=== PATIENT | female | born 1975 | race Caucasian/White ===

== ENCOUNTER 2017-01-21 11:36 | Inpatient (IN) | payer OTHER ==
--- NOTE | ~2017-01-21 | PA ---
Unit #: [id number] #: [id number] Patient: NASRA BENEDICT [id number] [facility] [address] [place] [address] [id number] I MR#: [id number] NAME: NASRA BENEDICT. ROOM: P179 Age: 42 Sex: F Admission Date: 01/21/2017 : 1975 Date of Assessment: 01/21/2017 Attending Physician: Madonna Tatum M.D. Admitting Physician: Madonna Tatum M.D. Primary Care Physician: Leticia [facility] PSYCHIATRIC ASSESSMENT DATE OF SERVICE 01/21/2017. IDENTIFYING DATA Ms. Benedict is a 42-year-old single white female, who is a resident of [place], [place], and was self-referred to the hospital on a voluntary basis. CHIEF COMPLAINT "I need help with my drinking and my heroin." HISTORY OF PRESENT ILLNESS Ms. Benedict is a 42-year-old white female, who presented requesting detox of daily opioid abuse and reports that she has been using 40 to 50 dollars worth of heroin on a daily basis for the past 3 weeks and also has been drinking heavily and reports increasing depression and anxiety and significant withdrawal symptoms and consequences because of her addiction and inability to function or perform activities of daily living. She reports poor energy level, psychomotor retardation, and anhedonia, but denies any suicidal ideations, intent, or plan. SUBSTANCE ABUSE HISTORY The patient reports history of alcohol, cannabis, cocaine, opioids, and amphetamine abuse, and currently, it appears that alcohol and opioids has been her drug of choice as she reports that she has been drinking regularly and has been using heroin on a daily basis. PAST PSYCHIATRIC HISTORY The patient has had a history of inpatient chemical dependency treatment at [facility] , and review of the medical records indicate that currently she is not active in any treatment program, is not seeing a psychiatrist, and is not taking any psychotropic medications. PAST MEDICAL HISTORY The patient's medical history is insignificant. ALLERGIES No known medication allergies. PERSONAL AND SOCIAL HISTORY A 42-year-old white female, who reports that she is and lives at home with her and her child and has fairly decent social support system. Unit #: [id number] #: [id number] Patient: NASRA BENEDICT MENTAL STATUS EXAMINATION Middle-aged white female, who was casually dressed with a fair personal hygiene, appears to be in no acute distress or discomfort. She was awake and alert on interaction with intact orientation to time, place, and person. Her mood was anxious and depressed with a congruent affect. Her speech was slow and restricted in content. Her thought processes were disorganized with some looseness of associations. She denies any suicidal or homicidal ideations and also denies any auditory or visual hallucinations. Her insight and judgment remain significantly impaired. DIAGNOSTIC IMPRESSION Psychiatric: Opioid dependence, moderate, in acute withdrawals; alcohol dependence, moderate, in acute withdrawals; and opioid-induced mood disorder. Medical: None. Stressors: Moderate psychosocial stressors. TREATMENT PLAN 1. The patient has presented with a history of mood disorder and has been decompensating and will need inpatient hospitalization for detoxification, safety, and stabilization. We will start her on detox protocol. We will closely monitor for any worsening withdrawal symptoms. 2. Supportive therapy was provided to the patient. 3. Safe, structured, and nourishing environment will be provided. ESTIMATED LENGTH OF STAY 5 to 7 days. ABILITY TO HELP SELF Limited. WILLINGNESS TO HELP SELF The patient appears to be willing to help self. STRENGTHS 1. Communicative. 2. Cooperative. PROBLEMS 1. Chronic dysphoric symptoms. 2. Chronic chemical dependency. 3. Poor social support system. DISCHARGE CRITERIA This will be contingent upon the patient's ability to go through detox without having any significant withdrawal symptoms as well as her ability to stay safe to herself, particularly after discharge from the hospital. Dictated by... Lexis Lakhani/lisseth TD: 01/22/2017 13:17 JOB #: [id number] Unit #: [id number] #: [id number] Patient: NASRA BENEDICT PSYCHIATRIC ASSESSMENT X Madonna Tatum MD PSYCHIATRIC ASSESSMENT
--- NOTE | ~2017-01-21 | DS ---
Unit #: [id number] #: [id number] Patient: NASRA BENEDICT [id number] [facility] [address] [place] [address] [id number] I MR#: [id number] NAME: NASRA BENEDICT. ROOM: P185 Age: 42 Sex: F Admission Date: 01/21/2017 : 1975 Discharge Date: 01/26/2017 Attending Physician: Madonna Tatum M.D. Primary Care Physician: Leticia Patients Family DISCHARGE SUMMARY IDENTIFYING DATA Ms. Benedict is a 42-year-old single white female, who is a resident of [place], [place], and was self-referred to the hospital on voluntary basis. DISCHARGE DIAGNOSES Psychiatric: Alcohol dependence, moderate and acute withdrawals; opioid-induced mood disorder. Medical: None. Stressors: Moderate psychosocial stressors. HISTORY OF PRESENT ILLNESS Please see initial psychiatric evaluation for details. PAST PSYCHIATRIC HISTORY Please see initial psychiatric evaluation for details. PAST MEDICAL HISTORY Please see initial psychiatric evaluation for details. HOSPITAL COURSE The patient was admitted to the adult chemical dependency unit at [facility] and was oriented to the hospital environment. Routine p.r.n. medications were initiated, and she was started back on her home medications and detox protocol was initiated as well. She was taking the medications regularly and was tolerating them fairly well and was able to show a decent and therapeutic response and as such, it was decided that she will be discharged home and will continue treatment on an outpatient basis. DISCHARGE MEDICATIONS None. DISCHARGE CONDITION Stable. PROGNOSIS Guarded. Dictated by... Madonna Tatum M.D. IAA/modl Unit #: [id number] #: [id number] Patient: NASRA BENEDICT TD: 01/26/2017 06:41 JOB #: [id number] DISCHARGE SUMMARY Page 1 of 1 X Madonna Tatum MD X DISCHARGE SUMMARY
--- NOTE | ~2017-01-21 | PN ---
Unit #: [id number] #: [id number] Patient: NASRA BENEDICT [id number] [facility] [address] [place] [address] [id number] I MR#: [id number] NAME: NASRA BENEDICT. ROOM: P185 Age: 42 Sex: F Admission Date: 01/21/2017 : 1975 Attending Physician: Madonna Tatum M.D. Admitting Physician: Madonna Tatum M.D. Primary Care Physician: [facility] PROGRESS NOTES DATE January 23, 2017 DISCUSSION Ms. Benedict is a 42-year-old white female, who was seen today and chart was reviewed and the case was discussed with the staff. She has been anxious, withdrawn, and rather seclusive to herself. Meanwhile, she has been cooperative with the treatment recommendations and she has been taking the medications and tolerating them fairly well with no reported side effects. MENTAL STATUS EXAMINATION Middle-aged white female, who was casually dressed with fair personal hygiene and appears to be in no acute distress or discomfort. She was awake and alert on interaction with intact orientation. Her mood was anxious with a congruent affect. The patient denies any suicidal or homicidal ideations. Her insight and judgment remain slightly impaired. TREATMENT PLAN 1. We will continue her on her current medications and treatment protocol, and will monitor her response to the medications, and make further adjustments as needed. 2. We will continue to followup. Dictated by... Lexis Lakhani/cinthya TD: 01/24/2017 12:23 JOB #: [id number] Unit #: [id number] #: [id number] Patient: NASRA BENEDICT [facility] PROGRESS NOTES Page 1 of 1 X Madonna Tatum MD PROGRESS NOTE
--- NOTE | ~2017-01-21 | PN ---
Unit #: [id number] #: [id number] Patient: NASRA BENEDICT [id number] [facility] [address] [place] [address] [id number] I MR#: [id number] NAME: NASRA BENEDICT. ROOM: P185 Age: 42 Sex: F Admission Date: 01/21/2017 : 1975 Attending Physician: Madonna Tatum M.D. Admitting Physician: Madonna Tatum M.D. Primary Care Physician: [facility] PROGRESS NOTES DATE OF SERVICE: 01/22/2017 SUBJECTIVE Ms. Benedict is a 42-year-old white female, who was seen today and chart was reviewed, and case was discussed with the staff. She has been anxious, withdrawn, though has not shown any agitation or irritability and appears to be in some distress and has discomfort. Meanwhile, she has been taking the medications and tolerating them fairly well. MENTAL STATUS EXAMINATION Middle-aged white female, who was casually dressed with fair personal hygiene, appears to be in no acute distress. She was awake and alert on interaction with intact orientation. Her mood was anxious and depressed with a congruent affect. Her speech was slow and goal directed. She denies any suicidal or homicidal ideations, and also denies any auditory or visual hallucinations. Her insight and judgment remain slightly impaired. TREATMENT PLAN 1. We will continue her on her current medications and treatment protocol. We will monitor her response to the medications and make further adjustments as needed. 2. We will continue to follow up. Dictated by... Lexis Lakhani/lisseth TD: 01/23/2017 06:22 JOB #: [id number] Unit #: [id number] #: [id number] Patient: NASRA BENEDICT [facility] PROGRESS NOTES Page 1 of 1 X Madonna Tatum MD PROGRESS NOTE
--- NOTE | ~2017-01-21 | CO ---
Unit #: [id number] #: [id number] Patient: SHARRON BENEDICT [id number] [place] [address] [id number] MR#: [id number] NAME: SHARRON BENEDICT. ROOM: [facility] Age: 42 Sex: F Admission Date: 01/21/2017 : 1975 Attending Physician: Madonna Tatum M.D. Primary Care Physician: [facility] Patients Family Consultation Date: 01/23/2017 CONSULTATION REPORT SUBJECTIVE Sharron is a 42-year-old with an abnormal urinalysis on admission. She had no complaints and there have been no recorded increased temperatures. OBJECTIVE GENERAL: Alert, well nourished, in no apparent distress. VITAL SIGNS: Blood pressure 120/70, heart rate 80, respirations 16, temperature 98.6. BACK: Negative CVA tenderness. DIAGNOSTIC STUDIES LABORATORY RESULTS: Admission urinalysis; 2+ bacteria, 5 to 10 wbc's. ASSESSMENT Urinary tract infection. PLAN Bactrim DS one p.o. b.i.d. x3 days. Dictated by... Keila Sutton P.A.-C. for Lexis Sanchez/lisseth TD: 01/26/2017 02:35 JOB #: [id number] CONSULTATION REPORT Page 1 of 1 X Keila Sutton CONSULTATION REPORT
--- NOTE | ~2017-01-21 | HP ---
Unit #: [id number] #: [id number] Patient: NASRA BENEDICT [id number] [place] [address] [id number] I MR#: [id number] NAME: NASRA BENEDICT. ROOM: [facility] Age: 42 Sex: F Admission Date: 01/21/2017 : 1975 Attending Physician: Madonna Tatum M.D. Admitting Physician: Madonna Tatum M.D. Primary Care Physician: Leticia Basurto Family HISTORY AND PHYSICAL HISTORY OF PRESENT ILLNESS The patient is a 42-year-old female who states she is here due to heroin abuse and here for detox. PAST MEDICAL HISTORY None. PAST SURGICAL HISTORY None. ALLERGIES None. SOCIAL HISTORY Positive for smoking, alcohol and drugs. FAMILY HISTORY Noncontributory. REVIEW OF SYSTEMS CONSTITUTIONAL: No fever or chills. HEENT: Denies any sore throat, ear pain or runny nose. CARDIOVASCULAR: Denies chest pain, irregular heart rhythm or palpitations. CHEST: Denies shortness of breath or cough. No hemoptysis. GASTROINTESTINAL: Denies nausea, vomiting, diarrhea or chronic constipation. ENDOCRINE: Denies history of increased thirst or urination. No recent significant weight loss or gain. GENITOURINARY: Denies dysuria, frequency, or hematuria. SKIN: Denies any rashes. HEMATOLOGIC: Denies history of increased bleeding or bruising. MUSCULOSKELETAL: Denies any hot, swollen joints. No generalized muscle pain. NEUROLOGIC: Denies problems with vision or speech. No frequent, severe headaches. No numbness, tingling or weakness in any extremities. Denies loss of bladder or bowel control. CURRENT MEDICATIONS None. PHYSICAL EXAMINATION GENERAL: Alert, oriented, in no acute distress. VITAL SIGNS: Temperature 98.4, heart rate 72, respirations 16, blood Unit #: [id number] #: [id number] Patient: NASRA BENEDICT pressure 110/63. HEIGHT: 5 feet. WEIGHT: 100 pounds. SKIN: Warm and dry without rash or lesion. Scar to the midline abdomen. HEENT: Normocephalic. TMs not viewed. Oral and nasal passages clear. Conjunctivae clear. PERRLA. EOMs intact. NECK: Supple without lymphadenopathy or thyromegaly. HEART: Regular rate and rhythm without murmur. LUNGS: Clear. ABDOMEN: Soft, nontender, without masses or hepatosplenomegaly. : Not done. EXTREMITIES: No evidence of cyanosis, clubbing or edema. Moves all without focal deficit. NEUROLOGICAL: Grossly within normal limits. Cranial Nerves: II: Visual gill are intact. III, IV AND : Extraocular movements are intact. Pupils are equal, round and reactive to light. V: Facial sensation is grossly normal. VII: Facial movements and expression are normal. VIII: Auditory acuity grossly intact. IX, X: Uvula is midline. Phonation is normal. XI: Patient shrugs shoulders and turns head normally. XII: Tongue protrudes in the midline. Sensory and Motor Function: Sensory and motor sensation is grossly normal. Motor: moves all extremities well. Coordination: Gait is normal. Deep Tendon Reflexes: Intact. IMPRESSION Psychiatric admission. RECOMMENDATIONS PSYCHIATRIC: Per psychiatrist. MEDICAL: No contraindications to participate in facility's activities. MEDICAL PROGNOSIS Good. Dictated by... Shirley Hicks/eusebia TD: 01/21/2017 22:18 JOB #: [id number] HISTORY AND PHYSICAL X Deanna Hernandez APR X HISTORY AND PHYSICAL
--- NOTE | ~2017-01-21 | PN ---
Unit #: [id number] #: [id number] Patient: NASRA BENEDICT [id number] [facility] [address] [place] [address] [id number] I MR#: [id number] NAME: NASRA BENEDICT. ROOM: P185 Age: 42 Sex: F Admission Date: 01/21/2017 : 1975 Attending Physician: Madonna Tatum M.D. Admitting Physician: Madonna Tatum M.D. Primary Care Physician: [facility] PROGRESS NOTES DATE January 24, 2017 DISCUSSION Ms. Benedict is a 42-year-old white female, with substance abuse and mood disorder, who was seen today and chart was reviewed and the case was discussed with the staff. She has been anxious and withdrawn but appears to be doing better and coming out of the detox without any complications. The patient has been taking medications and tolerating them fairly well with no reported side effects. MENTAL STATUS EXAMINATION Middle-aged white female, who was casually dressed with fair personal hygiene and appears to be in no acute distress or discomfort. The patient was awake and alert on interaction with intact orientation. Her mood was anxious with a congruent affect. Her speech is slow and goal-directed. She denies any suicidal or homicidal ideations, and also denies any auditory or visual hallucinations. Her insight and judgment remain slightly impaired. TREATMENT PLAN 1. We will continue her on her current medications and treatment protocol, and will monitor her response to the medications, and make further adjustments as needed. 2. We will continue to followup. Dictated by... Lexis Lakhani/cinthya TD: 01/25/2017 06:43 JOB #: [id number] Unit #: [id number] #: [id number] Patient: NASRA BENEDICT [facility] PROGRESS NOTES Page 1 of 1 X Madonna Tatum MD PROGRESS NOTE
--- NOTE | ~2017-01-21 | PN ---
Unit #: [id number] #: [id number] Patient: NASRA BENEDICT [id number] [facility] [address] [place] [address] [id number] I MR#: [id number] NAME: NASRA BENEDICT. ROOM: P185 Age: 42 Sex: F Admission Date: 01/21/2017 : 1975 Attending Physician: Madonna Tatum M.D. Admitting Physician: Madonna Tatum M.D. Primary Care Physician: [facility] PROGRESS NOTES DATE OF SERVICE: 01/25/2017 SUBJECTIVE Ms. Benedict is a 42-year-old white female who was seen today and chart was reviewed, and case was discussed with the staff. She has been anxious, withdrawn, and rather seclusive to herself. Meanwhile, she has been cooperative with treatment recommendations and has been taking the medications and tolerating them fairly well with no reported side effects. MENTAL STATUS EXAMINATION Middle-aged white female who was casually dressed with fair personal hygiene, appears to be in no acute distress or discomfort. She was awake and alert on interaction with intact orientation. Her mood was anxious with a congruent affect. Her speech was slow and goal directed. She denies any suicidal or homicidal ideations. Her insight and judgment remain slightly impaired. TREATMENT PLAN 1. We will continue on her current medications and treatment protocol. We will monitor her response to the medications and make further adjustments as needed. 2. We will continue to follow up. Dictated by... Lexis Lakhani/lisseth TD: 01/25/2017 08:13 JOB #: [id number] [facility] PROGRESS NOTES Page 1 of 1 X Madonna Tatum MD PROGRESS NOTE
[2017-01-22 11:35] LABS: ALBUMIN SERUM 3.5 g/dL (3.5-5.0); ALKALINE PHOSPHATASE 57 U/L (32-92); ALT (SGPT) 12 U/L (10-40); AST (SGOT) 16 U/L (10-42); BILIRUBIN,TOTAL 0.4 mg/dL (0.2-2.0); BLOOD UREA NITROGEN 10 mg/dL (9-23); CALCIUM SERUM 9.4 mg/dL (8.4-10.2); CARBON DIOXIDE 29 mmol/L (22-31); CHLORIDE 106 mmol/L (100-111); CREATININE SERUM 0.8 mg/dL (0.6-1.4); GLOM FILT RATE Estimated ABOVE60 mL/min (>60); GLUCOSE FASTING 94 mg/dL (70-110); PROTEIN TOTAL SERUM 6.1 g/dL (6.0-8.3); SODIUM 142 mmol/L (135-145)
[2017-01-22 11:43] LABS: THYROID STIMULATING HORMONE 1.87 uIU/ml (0.34-5.60)
[2017-01-22 11:50] LABS: FREE THYROXIN (T4) 0.73 ng/dL (0.58-1.64)
[2017-01-22 12:54] LABS: BASOPHIL% 0.4 % (0-2.5); EOSINOPHIL# 0.2 X10e3 (0-0.7); EOSINOPHIL% 1.9 % (0.0-7.0); HEMATOCRIT 40.9 % (35.0-45.0); HEMOGLOBIN 13.4 gm/dL (12.0-16.0); LYMPHOCYTE# 2.5 X10e3 (1.0-3.5); LYMPHOCYTE% 23.1 % (17.0-45.0); MEAN CELL VOLUME 91.5 FL (83-96); MEAN CORPUSCULAR HEMOGLOBIN 29.9 PG (28-34); MEAN CORPUSCULAR HGB CONC 32.7 g/dL (30-36); MEAN PLATELET VOLUME 8.8 FL (6.5-11.5); MONOCYTE# 0.9 X10e3 (0-1.0); NEUTROPHIL# 7.1 X10e3 (1.5-7.1); NEUTROPHIL% 66.6 % (40-75); PLATELET COUNT 244 X10e3 (140-420); RED BLOOD COUNT 4.47 X10e (3.90-5.30); RED CELL DISTRIBUTION WIDTH 13.3 % (11.0-15.5); WHITE BLOOD COUNT 10.7 X10e3 (4.0-10.5)
[2017-01-22 12:57] LABS: DIFF IND NO
[2017-01-22 14:18] LABS: URINE APPEARANCE CLOUDY; URINE BILIRUBIN NEG (NEG); URINE BLOOD NEG (NEG); URINE COLOR YELLOW; URINE GLUCOSE NEG (NEG); URINE KETONE NEG (NEG); URINE LEUKOCYTE ESTERASE 3+ (NEG); URINE NITRATE NEG (NEG); URINE PROTEIN NEG (NEG); URINE SPECIFIC GRAVITY 1.009 (1.003-1.035); URINE UROBILINOGEN 0.2 MG/DL (NEG)
[2017-01-22 14:21] LABS: U HYALINE CASTS AUWI 0-2 /[LPF]; URBCS1 AUWI 0-2 /[HPF] (0-2); URINE BACTERIA AUWI 2+ (NEGATIVE); URINE SQUAMOUS EPITHELIAL CELL MANY /[HPF]
[2017-01-22 14:31] LABS: AMPHETAMINE NEG (NEG); BARBITURATES NEG (NEG); BENZODIAZEPINES NEG (NEG); COCAINE NEG (NEG); MARIJUANA NEG (NEG); OPIATES POS (NEG); TRICYCLIC ANTIDEPRESSANTS NEG (NEG); U METHADONE NEG (NEG)
== END 2017-01-26 10:05 | disposition home or self-care (01) | DRG 897 ==
LOC: P1E 11:36
PROVIDERS: Psychiatry & Neurology Psychiatry
PROC: HZ2ZZZZ Detoxification Services for Substance Abuse Treatment (ICD-10-PCS; principal; 2017-01-21)
DX: F11.23 Opioid dependence with withdrawal (principal); F10.230 Alcohol dependence with withdrawal, uncomplicated; N39.0 Urinary tract infection, site not specified; F11.24 Opioid dependence with opioid-induced mood disorder
CPT/HCPCS: 80053; 80307; 81003; 84439; 84443; 84703; 85025; 86592